=== PATIENT | male | born 1985 | race Caucasian/White ===

== ENCOUNTER → 2017-10-24 14:01 | Outpatient (CLI) | payer BC, SELFPAY | PROVIDERS: Family Provider Family Medicine; PCP Family Medicine; Visit Provider Family Medicine | DX: A09 Infectious gastroenteritis and colitis, unspecified (principal) | CPT/HCPCS: 87177; 87209; 87506 ==

== ENCOUNTER 2018-04-01 14:02 | Emergency (ER) | payer BC, MEDICAID, SELFPAY ==
[2018-04-01 14:04] VITALS: BP 137/77; PULSE 86; RESP 16; TEMP 36.5; O2SAT 97; BMI 44.0
--- NOTE | 2018-04-01 14:39 | ED.RN ---
PER DR. RAINEY, NO SITTER NECESSARY FOR PT. VIPIN NUNO FROM [employer]BER SERVICE REPRESENTATIVE TO TALK TO PT. FAMILY PRESENT IN ROOM, CALL LIGHT IN REACH.
--- NOTE | 2018-04-01 15:01 | ED.VISSUMM ---
- ER Visit Summary Date of Service: 04/01/18 Chief Complaint: Depression/anger History of Present Illness: The patient is a 32 M who states that he is depressed and angry. He states is worsening over the past 2 days. He has been having issues with family at home. He states he is not sleeping well because he has twins. He states he angers easily and that involves fighting with his . He denies being suicidal at this time. However, during an argument over the past couple of days he states that he did say at one point he may hurt himself but he does not feel like he will at this point. Over the past couple of years he states that multiple people close to him of which is made him more depressed. He currently is on Zoloft. This is prescribed by his primary care physician. He has a follow-up appointment with the counseling center in 8 days. He has never been hospitalized at a psychiatric facility before. He has never seen a counselor previously. Physical Examination: Vital signs reviewed. HEENT exam unremarkable. Heart is regular rate and rhythm without murmurs. Lungs are clear to auscultation. Abdomen is soft and nontender. Extremities reveal no edema. Skin exam normal. Neurologic exam normal. Patient states he is depressed but he voices no suicidal thoughts at this time. He is future oriented when discussing his children and the upcoming appointment with the counseling center. Test Results: None performed Emergency Department Course and Treatment: At this point I do not feel the patient is suicidal. He has good insight and states that when he was angry and fighting he may have said something that he did not mean and he regrets saying it. I had the social sciences department chair also evaluate the patient and she also agrees that the patient does not appear to be suicidal. She is going to follow-up with the counseling center to possibly get the patient in earlier than 8 days. Patient understands that he can always come back here or call the emergency department if he is feeling suicidal. Family is comfortable with taking him home with him. Treatment Plan: [] Disposition: Discharge Impression: Depression This note was generated with [employer] software. It may contain incorrect words, spelling, and punctuation that were not noted in review of the chart prior to signing ED Disposition - Plan for ED Patient: Chief Complaint: Mental Health Referrals: Pravin Rodriges MD [Primary Care Provider] -
--- NOTE | 2018-04-01 15:04 | ED.DCSUM_ITS ---
- ER Visit Summary Date of Service: 04/01/18 Chief Complaint: Depression/anger History of Present Illness: The patient is a 32 M who states that he is depressed and angry. He states is worsening over the past 2 days. He has been having issues with family at home. He states he is not sleeping well because he has twins. He states he angers easily and that involves fighting with his . He denies being suicidal at this time. However, during an argument over the past couple of days he states that he did say at one point he may hurt himself but he does not feel like he will at this point. Over the past couple of years he states that multiple people close to him of which is ma de him more depressed. He currently is on Zoloft. This is prescribed by his primary care physician. He has a follow-up appointment with the counseling center in 8 days. He has never been hospitalized at a psychiatric facility before. He has never seen a counselor previously. Physical Examination: Vital signs reviewed. HEENT exam unremarkable. Heart is regular rate and rhythm without murmurs. Lungs are clear to auscultation. Abdomen is soft and nontender. Extremities reveal no edema. Skin exam normal. Neurologic exam normal. Patient states he is depressed but he voices no suicidal thoughts at this time. He is future oriented when discussing his children and the upcoming appointment with the counseling center. Test Results: None performed Emergency Department Course and Treatment: At this point I do not feel the patient is suicidal. He has good insight and states that when he was angry and fighting he may have said something that he did not mean and he regrets saying it. I had the mental health social worker also evaluate the patient and she also agrees that the patient does not appear to be suicidal. She is going to follow-up with the counseling center to possibly get the patient in earlier than 8 days. Patient understands that he can always come back here or call the emergency department if he is feeling suicidal. Family is comfortable with taking him home with him. Treatment Plan: [] Disposition: Discharge Impression: Depression This note was generated with [employer] software. It may contain incorrect words, spelling, and punctuation that were not noted in review of the chart prior to signing ED Disposition - Plan for ED Patient: Chief Complaint: Mental Health Referrals: Pravin Rodriges MD [Primary Care Provider] -
--- NOTE | 2018-04-01 15:04 | ED.DEP ---
ED Disposition - Plan for ED Patient: Disposition: Home or Assisted Living Chief Complaint: Mental Health Instructions: ED Depression Referrals: Pravin Rodriges MD [Primary Care Provider] -
[2018-04-01 15:05] VITALS: RESP 18
--- NOTE | 2018-04-01 15:09 | CM.ED ---
Social Work Assessment Consult for: Depression Informant: Dr. Ponce Information obtained from: Medical record, pt and pt's , Emilia. Introduced self and role at [facility]. The pt is lying in bed and presents with pleasant affect as evidenced by smiling and willingness to participate in assessment. Maintains very little eye contact throughout assessment, but responds to questions appropriately and thoroughly. provides additional information as needed. Living Arrangements: Pt reports to live with his and 5 children. They have their 10 week old twins in the room with them today. Report stable housing. 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 Financially both report to feel stable although claim that money is tight. Family Supports: Pt identifies his as a primary support. Stressors: Within the last year the pt has lost his father, a close friend, and found out that his mother has lung cancer. His marriage has also struggled as there is a history of substance abuse, and they now have twins. Emotional support provided by this program writer as well as pt's . Provide support to her as well. Emilia reports that she struggles to trust the pt d/t to substance abuse and feels as though some days lately he is not any help with the children and it can be overbearing on her as they have 5 children. At this time pt reaches out to hold his 's hand and provides support to her. Both report that they want their marriage to work and for the pt to take care of my mental health and substance abuse. Mental Health Hx: Pt reports a hx of depression. He has not gone to a counselor since his education at the [facility]. He has an appointment with [facility] on 04/09 for an intake with a counselor. He does not see a psychiatrist and Dr. Rodriges had been prescribing him Lexapro for 6 months and he recently switched to a practitioner at [facility] who put him on Zoloft within the last week. Feels that the switch in medication and adjustment has contributed to his recent increase in depression. Pt states that he was upset and made a comment about killing himself, but denies SI, denies a plan or intent or means. No past attempts, or psychiatric hospitalizations. Educate to [facility] and pt is agreeable to have staff contact him via phone call and educate further on their services. Provide the pt with resources on suicide prevention line and crisis line, support groups in the area as well as alternative counseling and psychiatrists locally. Pt and accept information and thank this program writer. Substance Abuse Hx: Pt reports quitting smoking tobacco 4 months ago before the twins arrived. States that he drinks socially maybe 3x/year. Does smoke cannabis regularly and his last methamphetamine use was approximately 1 month ago. Pt does express interest in quitting. Denies having been to any type of substance abuse treatment and again review resource and point out [employer] and inform that the [facility] and [facility] also work with dual diagnosis pt's. Understanding expressed. Intervention(s) Assessment complete and update physician that pt is safe to discharge home. Placed call to Justin and requested they follow-up with the pt tomorrow, which Justin confirms he will do. Local resources provided and encouraged pt and if symptoms get worse to return to ED for evaluation. PLAN: Discharge home with support of . [facility] appoint on 04/09 and [facility] to f/u via phone call tomorrow, 04/02. Celestina Galeano, HUMAN RESOURCES DIRECTOR, VIPIN
[2018-04-01 15:31] VITALS: RESP 15
--- OUTSIDE RECORDS SUMMARY | 2018-06-04 03:35 | XMS RPT_ITS ---
:1985 Author Organization OH[facility] Care Team Providers Name Role Phone CHRIS VEGA (EMPLOYMENT AGENCY MANAGER) Referring Unavailable CHRIS VEGA (EMPLOYMENT AGENCY MANAGER) Attending Unavailable Chepe Ponce Attending Unavailable Primay Care Physicia, No Primary Care Unavailable Pravin Rodriges Attending Unavailable Pravin Rodriges Primary Care Unavailable Benji Chapman Attending Unavailable PROBLEMS PROBLEMS DATE TYPE CONDITION / CODE ATTENDING STATUS SOURCE 03/26/2018 Active Other fatigue / NA Active [place] R53.83(ICD-10) Clinic Main [place] Repository 03/26/2018 Active Encounter for NA Active [place] screening for lipoid [facility] Main disorders / [place] Z13.220(ICD-10) Repository 10/25/2017 Unknown A09 - Infectious Pravin Rodriges Active [place] gastroenteritis and Community colitis, unspecified Hospital / A09(ICD-10) Repository 09/14/2017 Unknown L08.9 - Local Benji Chapman Active [place] infection of the skin Community and subcutaneous Hospital tissue, unspecified / Repository L08.9(ICD-10) PROCEDURES PROCEDURES No Procedure Records FoundRESULTS RESULTS EMERGENCY DEPARTMENT Observed: 04/01/2018 Status: F Source: [place] SUMMARY 3:04 PM [facility] [place] REPOSITORY [facility] Medical Records Department [address] [place] [address] Emergency Department Summary 04/01/18 1501 MR#: [id number] Acct: [id number] Name: SHUN PICKERING Rep #: [id number] : 1985 32 From: Chepe Ponce MD PCP: Pravin Rodriges MD Status: PRE ER - ER Visit Summary Date of Service: 04/01/18 Chief Complaint: Depression/anger History of Present Illness: The patient is a 32 M who states that he is depressed and angry. He states is worsening over the past 2 days. He has been having issues with family at home. He states he is not sleeping well because he has twins. He states he angers easily and that involves fighting with his . He denies being suicidal at this time. However, during an argument over the past couple of days he states that he did say at one point he may hurt himself but he does not feel like he will at this point. Over the past couple of years he states that multiple people close to him of which is made him more depressed. He currently is on Zoloft. This is prescribed by his primary care physician. He has a follow-up appointment with the counseling center in 8 days. He has never been hospitalized at a psychiatric facility before. He has never seen a counselor previously. Physical Examination: Vital signs reviewed. HEENT exam unremarkable. Heart is regular rate and rhythm without murmurs. Lungs are clear to auscultation. Abdomen is soft and nontender. Extremities reveal no edema. Skin exam normal. Neurologic exam normal. Patient states he is depressed but he voices no suicidal thoughts at this time. He is future oriented when discussing his children and the upcoming appointment with the counseling center. Test Results: None performed Emergency Department Course and Treatment: At this point I do not feel the patient is suicidal. He has good insight and states that when he was angry and fighting he may have said something that he did not mean and he regrets saying it. I had the director of social media marketing also evaluate the patient and she also agrees that the patient does not appear to be suicidal. She is going to follow-up with the counseling center to possibly get the patient in earlier than 8 days. Patient understands that he can always come back here or call the emergency department if he is feeling suicidal. Family is comfortable with taking him home with him. Treatment Plan: [] Disposition: Discharge Impression: Depression This note was generated with [employer] software. It may contain incorrect words, spelling, and punctuation that were not noted in review of the chart prior to signing ED Disposition - Plan for ED Patient: Chief Complaint: Mental Health Referrals: Pravin Rodriges MD [Primary Care Provider] - What to do if you have Problems For any increased pain, shortness of breath, bleeding, nausea or vomiting, chest pain, or any unexpected problems, contact your Primary Care Provider. Call [facility] ([phone]) or report to the closest Emergency Room. Call 911 if necessary. 04/01/18 1504 <Electronically signed by Chepe Ponce MD> Date Chepe Ponce MD Cosigner Signature (If Indicated): Date CC: Pravin Rodriges MD DISCHARGE INSTRUCTION Observed: 04/01/2018 Status: F Source: [place] 3:04 PM [facility] REPOSITORY [facility] Medical Records Department [address] [place] [id number] Discharge Instruction 04/01/18 1504 MR#: [id number] Acct: [id number] Name: SHUN PICKERING Rep #: [id number] : 1985 32 From: Chepe Ponce MD PCP: Pravin Rodriges MD Status: PRE ER ED Disposition - Plan for ED Patient: Disposition: Home or Assisted Living Chief Complaint: Mental Health Instructions: ED Depression Referrals: Pravin Rodriges MD [Primary Care Provider] - What to do if you have Problems For any increased pain, shortness of breath, bleeding, nausea or vomiting, chest pain, or any unexpected problems, contact your Primary Care Provider. Call [facility] ([phone]) or report to the closest Emergency Room. Call 911 if necessary. 04/01/18 1504 <Electronically signed by Chepe Ponce MD> Date Chepe Ponce MD Cosigner Signature (If Indicated): Date CC: Pravin Rodriges MD CBC Collected: 03/26/2018 Status: F Source: [place] 12:38 PM [facility] REPOSITORY TYPE CODE TESTS RESULT OUT OF REFERENCE UNITS RANGE LAB WBC 3.70-11.00 k/uL WBC 7.52 LAB RBC 4.20-6.00 m/uL RBC 5.30 LAB HGB 13.0-17.0 g/dL Hemoglobin 14.9 LAB HCT 39.0-51.0 % Hematocrit 46.1 LAB MCV 80.0-100.0 fL MCV 87.0 LAB MCH 26.0-34.0 pG MCH 28.1 LAB MCHC 30.5-36.0 g/dL MCHC 32.3 LAB RDWCV 11.5-15.0 % RDW-CV 13.0 LAB PLTCT 150-400 k/uL Platelet Count 278 LAB MPV 9.0-12.7 fL MPV 10.7 LAB ABSNUC <0.01 k/uL Absolute nRBC <0.01 Performed By: #### CBC, CMP, LIPNF, TSH #### [facility] [address] [address] COMP METABOLIC PANEL Collected: 03/26/2018 Status: F Source: [place] 12:38 PM [facility] REPOSITORY TYPE CODE TESTS RESULT OUT OF REFERENCE UNITS RANGE LAB TP 6.3-8.0 g/dL Protein, Total 7.9 LAB ALB 3.9-4.9 g/dL Albumin 4.7 LAB CA 8.5-10.2 mg/dL Calcium, Total 10.0 LAB TBIL 0.2-1.3 mg/dL Bilirubin, Total 0.5 LAB ALKP 38-113 U/L Alkaline Phosphatase 61 LAB AST 14-40 U/L AST 32 LAB GLU 74-99 mg/dL Glucose 80 Result Comment: The [place] Diabetes Association (ADA) provides guidance for cutoff values for fasting glucose and random glucose. The ADA defines fasting as no caloric intake for at least 8 hours. Fas ting plasma glucose results between 100 to 125 mg/dL indicate increased risk for diabetes (prediabetes). Fasting plasma glucose results greater than or equal to 126 mg/dL meet the criteria for diagnosis of diabetes. In the absence of unequivocal hyperglycemia, results should be confirmed by repeat testing. In a patient with classic symptoms of hyperglycemia or hyperglycemic crisis, random plasma glucose results greater than or equal to 200 mg/dL meet the criteria for diagnosis of diabetes. Reference: Standards of Medical Care in Diabetes 2016, [place] [employer] Diabetes Association. Diabetes Care. 2016.39(Suppl 1). LAB BUN 9-24 mg/dL BUN 15 LAB CRET 0.73-1.22 mg/dL Creatinine 1.08 LAB NA 136-144 mmol/L Sodium 141 LAB K 3.7-5.1 mmol/L Potassium 4.3 LAB CL 97-105 mmol/L Chloride 101 LAB CO2 22-30 mmol/L CO2 26 LAB AGAP 9-18 mmol/L Anion Gap 14 LAB ALT 10-54 U/L ALT 48 LAB GFRAA eGFR- Amer. >60 LAB GFRNAA . eGFR-All Other Races >60 Result Comment: eGFR (Estimated GFR) Units of measure: mL/min/1.73 meters squared eGFR is derived from the reexpressed MDRD Study equation using the following parameters: serum creatinine, age, gender and race. The creatinine assay has been calibrated to be traceable to IDMS. An eGFR <60 mL/min/1.73m2 for >3 months is consistent with chronic kidney disease. Refer to KDOQI guidelines for clinical interpretation. In patients with unstable renal function, e.g. those with acute kidney injury, the eGFR may not accurately reflect actual GFR. Performed By: #### CBC, CMP, LIPNF, TSH #### [facility] [address] [address] LIPID PANEL, NONFAST Collected: 03/26/2018 Status: F Source: [place] 12:38 PM [facility] TYPE CODE TESTS RESULT OUT OF REFERENCE UNITS RANGE LAB CHOLNF <200 mg/dL Total High Cholesterol NF 220 Result Comment: <200 mg/dL, Desirable 200-239 mg/dL, Borderline high >239 mg/dL, High LAB TRIGNF <150 mg/dL Triglycerides, NF High 173 Result Comment: <150 mg/dL, Normal 150-199 mg/dL, Borderline high 200-499 mg/dL, High >499 mg/dL, Very high LAB HDLNF >39 mg/dL HDL Cholesterol, NF 40 Result Comment: 40-59 mg/dL, Acceptable >59 mg/dL, High: Negative risk factor for coronary heart disease <40 mg/dL, Low: Positive risk factor for coronary heart disease LAB LDLNF <100 mg/dL LDL Cholesterol, High NF 145 Result Comment: <100 mg/dL, Optimal 100-129 mg/dL, Near optimal/above optimal 130-159 mg/dL, Borderline high 160-189 mg/dL, High >189 mg/dL, Very high Secondary prevention optimal LDL Cholesterol levels are recommended to be < 70 mg/dL LAB NOHDLN <130 mg/dL High Non HDL Chol, 180 NF Result Comment: <130 mg/dL, Optimal 130-159 mg/dL, Near optimal/above optimal 160-189 mg/dL, Borderline high 190-219 mg/dL, High >219 mg/dL, Very high Secondary prevention optimal non HDL Cholesterol levels are recommended to be < 100 mg/dL LAB VLDLNF <30 mg/dL VLDL Cholesterol, High NF 35 LAB TCHDLN <5.10 mg/dL T Chol/HDL Ratio High NF 5.50 LAB LDLHDN <2.54 mg/dL LDL/HDL Ratio, NF High 3.63 Result Comment: Reference: 1. National Cholesterol Education Program ATP III Guideline At-A-Glance Quick Desk Reference: National Heart, Lung, and Blood [place]. National Institutes of Health. 2001: NIH Publication No. 01-3305. 2. An International Atherosclerosis Society position paper: global recommendations for the management of dyslipidemia: executive summary, Atherosclerosis. 2014: 232(2):410-413. Performed By: #### CBC, CMP, LIPNF, TSH #### [facility] [address] [address] TSH Collected: 03/26/2018 Status: F Source: [place] 12:38 PM [facility] REPOSITORY TYPE CODE TESTS RESULT OUT OF RANGE REFERENCE UNITS LAB TSH 0.400-5.500 uU/mL TSH 1.200 Performed By: #### CBC, CMP, LIPNF, TSH #### [facility] [address] [place], [place] [address] PROGRESS Observed: 03/26/2018 Status: COMPLETED Source: [place] 11:35 AM [facility] REPOSITORY HNO ID: [id number] Author: Chris (Moses) Nathan Service: (none) Author Type: Nurse Practitioner Type: Progress Notes Filed: 03/26/2018 1:26 PM Note Text: 03/26/2018 Patient presents with: anxiety and depression SUBJECTIVE: This is a 32 year old that is here today for anxiety and depression concerns. He states that he was being seen by Dr. Rodriges and for the last 5 months being treated for anxiety and depression with lexapro. 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 He has used twice in the last 2 months. He would like to look into [facility] because a friends suggested it. He does have an appointment with the counseling center on 04/09/18. He thinks that the depression has gotten worse while the anxiety may have gotten a little better. He and both describe major lows and few days where he is his normal self, happy, smiling, joking etc. They deny any concerns for sabas. She states that there had been times that he is talking real fast, but she feels that he was using drugs as a reason. He and are also very concerned about having labs done and would like a sleep study for known apnea and snoring along with constant fatigue. They are agreeable to reschedule for physical, but would like to have this done sooner than later if able. He denies SOB, CP, SHEA, vision changes, weakness, lightheadedness, dizziness. He has 9 week old twin girls and 3 other children. PAST MEDICAL HISTORY Diagnosis Date - Anxiety - Depression ALLERGIES Patient has no known allergies. MEDICATIONS Current Outpatient Prescriptions: escitalopram oxalate (LEXAPRO) 20 mg tablet Take 20 mg by mouth once daily. No current facility-administered medications for this visit. Medications and allergies reviewed by this provider. SOCIAL HISTORY Social History Marital status: Spouse name: Years of education: Number of children: Social History Main Topics Smoking status: Former Smoker Packs/day: 0.00 Years: 0.00 Smokeless tobacco: Current User Types: Chew Alcohol use: No Drug use: No REVIEW OF SYSTEMS see HPI Feeling nervous, anxious, or on edge 3 Nearly every day Not being able to stop or control worrying 0 Not at all sure Worrying too much about different things 1 Several days Trouble relaxing 0 Not at all sure Being so restless that it's hard to sit still 0 Not at all sure Being easily annoyed or irritable 2 Over half the days Feeling afraid as if something awful might happen 0 Not at all sure BENNIE-7 Anxiety Score 6 If you checked off any problems, how difficult have these problems made it for you to do your work, take care of things at home, or get along with other people? Very difficult THE LAST 2 WEEKS, HAVE YOU BEEN BOTHERED BY ANY OF THE FOLLOWING? - Little interest or pleasure in doing things 3 NEARLY EVERY DAY Feeling down, depressed, or hopeless 2 Trouble falling or staying asleep, or sleeping too much 3 Feeling tired or having little energy 3 Poor appetite or overeating 2 Feeling bad yourself-you are a failure or have let yourself or others 3 Trouble concentrating, like reading the paper or watching TV 1 Moving/speaking slowly (others notice) OR being more fidgety/restless 3 Thoughts that you would be better off or of hurting yourself 0 PHQ TOTAL SCORE = 20 PHQ problems effect on difficulty of work, home, and social activity: 3 - VERY DIFFICULT OBJECTIVE: BP 132/80 Pulse 104 Resp 16 Ht 174 cm (5' 8.5) Wt 130.6 kg (288 lb) SpO2 98% BMI 43.15 kg/m? . Vital signs reviewed by this provider. PHYSICAL EXAMINATION: General appearance: Well appearing, alert, in no acute distress, well-hydrated, well nourished. Skin: Skin color, texture, turgor normal, no suspicious rashes or lesions Eyes: Anicteric sclera. Pupils are equally round and reactive to light. Neck: Supple, no adenopathy; thyroid symmetric, normal size, no bruits Lungs: lungs clear to auscultation. No wheezing, rhonchi, rales Heart: RRR without murmur, gallop, or rubs. No ectopy Extremities: No deformities, edema, skin discoloration, clubbing or cyanosis. Good capillary refill. , Pulses: 2+ Appearance: well dressed well groomed, tense posture, cooperative and pleasant Behavior: poor eye contact Speech: fluent and coherent Mood: anxious Affect: appropriate Perceptions: none Thought process: goal directed Thought Content: normal Intelligence level: normal Insight: good Judgment: good ASSESSMENT/PLAN: 1. Anxiety and depression - ICD9: 300.00, 311, ICD10: F41.9, F32.9 (primary diagnosis) - will switch from lexapro to zoloft since feeling increased depression on it. - SERTRALINE 25 MG TABLET- start with 25 mg daily for 1 week, then increase to 50mg - encouraged to follow up with counseling center as planned, but also given information on [facility] and encouraged to schedule - discussed and encouraged nonpharmacologic measures. - HYDROXYZINE PAMOATE 25 MG CAPSULE 2. Drug abuse (HCC) - ICD9: 305.90, ICD10: F19.10 - given information on [facility] and encouraged to schedule - commended on voicing that he would not want any addictive medications 3. Snoring - ICD9: 786.09, ICD10: R06.83 - HOME SLEEP APNEA TEST (HSAT) - PAP TITRATION PSG (CPAP, BIPAP, ASV) 4. Apnea - ICD9: 786.03, ICD10: R06.81 - HOME SLEEP APNEA TEST (HSAT) - PAP TITRATION PSG (CPAP, BIPAP, ASV) 5. Fatigue, unspecified type - ICD9: 780.79, ICD10: R53.83 - HOME SLEEP APNEA TEST (HSAT) - PAP TITRATION PSG (CPAP, BIPAP, ASV) - COMP METABOLIC PANEL - CBC - TSH BLD 6. Screening cholesterol level - ICD9: V77.91, ICD10: Z13.220 - LIPID PANEL, NONFASTING 7. Obesity, Class III, BMI 40-49.9 (morbid obesity) (HCC) - ICD9: 278.01, ICD10: E66.01 - discussed general focus on healthy diet and exercise is a good idea, but would focus on mental health first 8. Tobacco use - ICD9: 305.1, ICD10: Z72.0 - Cessation encouraged. - Physiologic and physical aspects of tobacco addiction as well as strategies for quitting were discussed. - Counseling was given focusing on the harmful effects of this addiction especially given the patient's medical condition(s) which will be worsened because of the chemicals in tobacco. Chris Vega APRN.CNP CNOV Observed: 03/26/2018 Status: COMPLETED Source: [place] 11:20 AM [facility] REPOSITORY Office Visit (FAMPWS) SHUN PICKERING ([id number]) 1985 M [facility] [place] Date Time Provider Department 03/26/18 11:20 AM [facility] visit today, we recorded the following information about you: Pulse Respiration Blood pressure Weight 104/minute 16/minute 132/80 130.6 kg Height 1.74 m Chris Vega APRN.CNP 03/26/2018 1:26 PM Signed 03/26/2018 Patient presents with: anxiety and depression SUBJECTIVE: This is a 32 year old that is here today for anxiety and depression concerns. He states that he was being seen by Dr. Rodriges and for the last 5 months being treated for anxiety and depression with lexapro. 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 He has used twice in the last 2 months. He would like to look into [facility] because a friends suggested it. He does have an appointment with the counseling center on 04/09/18. He thinks that the depression has gotten worse while the anxiety may have gotten a little better. He and both describe major lows and few days where he is his normal self, happy, smiling, joking etc. They deny any concerns for sabas. She states that there had been times that he is talking real fast, but she feels that he was using drugs as a reason. He and are also very concerned about having labs done and would like a sleep study for known apnea and snoring along with constant fatigue. They are agreeable to reschedule for physical, but would like to have this done sooner than later if able. He denies SOB, CP, SHEA, vision changes, weakness, lightheadedness, dizziness. He has 9 week old twin girls and 3 other children. PAST MEDICAL HISTORY Diagnosis Date - Anxiety - Depression ALLERGIES Patient has no known allergies. MEDICATIONS Current Outpatient Prescriptions: escitalopram oxalate (LEXAPRO) 20 mg tablet Take 20 mg by mouth once daily. No current facility-administered medications for this visit. Medications and allergies reviewed by this provider. SOCIAL HISTORY Social History Marital status: Spouse name: Years of education: Number of children: Social History Main Topics Smoking status: Former Smoker Packs/day: 0.00 Years: 0.00 Smokeless tobacco: Current User Types: Chew Alcohol use: No Drug use: No REVIEW OF SYSTEMS see HPI Feeling nervous, anxious, or on edge 3 Nearly every day Not being able to stop or control worrying 0 Not at all sure Worrying too much about different things 1 Several days Trouble relaxing 0 Not at all sure Being so restless that it's hard to sit still 0 Not at all sure Being easily annoyed or irritable 2 Over half the days Feeling afraid as if something awful might happen 0 Not at all sure BENNIE-7 Anxiety Score 6 If you checked off any problems, how difficult have these problems made it for you to do your work, take care of things at home, or get along with other people? Very difficult THE LAST 2 WEEKS, HAVE YOU BEEN BOTHERED BY ANY OF THE FOLLOWING? - Little interest or pleasure in doing things 3 NEARLY EVERY DAY Feeling down, depressed, or hopeless 2 Trouble falling or staying asleep, or sleeping too much 3 Feeling tired or having little energy 3 Poor appetite or overeating 2 Feeling bad yourself-you are a failure or have let yourself or others 3 Trouble concentrating, like reading the paper or watching TV 1 Moving/speaking slowly (others notice) OR being more fidgety/restless 3 Thoughts that you would be better off or of hurting yourself 0 PHQ TOTAL SCORE = 20 PHQ problems effect on difficulty of work, home, and social activity: 3 - VERY DIFFICULT OBJECTIVE: BP 132/80 Pulse 104 Resp 16 Ht 174 cm (5' 8.5) Wt 130.6 kg (288 lb) SpO2 98% BMI 43.15 kg/m? . Vital signs reviewed by this provider. PHYSICAL EXAMINATION: General appearance: Well appearing, alert, in no acute distress, well-hydrated, well nourished. Skin: Skin color, texture, turgor normal, no suspicious rashes or lesions Eyes: Anicteric sclera. Pupils are equally round and reactive to light. Neck: Supple, no adenopathy; thyroid symmetric, normal size, no bruits Lungs: lungs clear to auscultation. No wheezing, rhonchi, rales Heart: RRR without murmur, gallop, or rubs. No ectopy Extremities: No deformities, edema, skin discoloration, clubbing or cyanosis. Good capillary refill. , Pulses: 2+ Appearance: well dressed well groomed, tense posture, cooperative and pleasant Behavior: poor eye contact Speech: fluent and coherent Mood: anxious Affect: appropriate Perceptions: none Thought process: goal directed Thought Content: normal Intelligence level: normal Insight: good Judgment: good ASSESSMENT/PLAN: 1. Anxiety and depression - ICD9: 300.00, 311, ICD10: F41.9, F32.9 (primary diagnosis) - will switch from lexapro to zoloft since feeling increased depression on it. - SERTRALINE 25 MG TABLET- start with 25 mg daily for 1 week, then increase to 50mg - encouraged to follow up with counseling center as planned, but also given information on [facility] and encouraged to schedule - discussed and encouraged nonpharmacologic measures. - HYDROXYZINE PAMOATE 25 MG CAPSULE 2. Drug abuse (HCC) - ICD9: 305.90, ICD10: F19.10 - given information on [facility] and encouraged to schedule - commended on voicing that he would not want any addictive medications 3. Snoring - ICD9: 786.09, ICD10: R06.83 - HOME SLEEP APNEA TEST (HSAT) - PAP TITRATION PSG (CPAP, BIPAP, ASV) 4. Apnea - ICD9: 786.03, ICD10: R06.81 - HOME SLEEP APNEA TEST (HSAT) - PAP TITRATION PSG (CPAP, BIPAP, ASV) 5. Fatigue, unspecified type - ICD9: 780.79, ICD10: R53.83 - HOME SLEEP APNEA TEST (HSAT) - PAP TITRATION PSG (CPAP, BIPAP, ASV) - COMP METABOLIC PANEL - CBC - TSH BLD 6. Screening cholesterol level - ICD9: V77.91, ICD10: Z13.220 - LIPID PANEL, NONFASTING 7. Obesity, Class III, BMI 40-49.9 (morbid obesity) (HCC) - ICD9: 278.01, ICD10: E66.01 - discussed general focus on healthy diet and exercise is a good idea, but would focus on mental health first 8. Tobacco use - ICD9: 305.1, ICD10: Z72.0 - Cessation encouraged. - Physiologic and physical aspects of tobacco addiction as well as strategies for quitting were discussed. - Counseling was given focusing on the harmful effects of this addiction especially given the patient's medical condition(s) which will be worsened because of the chemicals in tobacco. ABIGAIL Beasley APRN.CNP 03/26/2018 1:18 PM Signed Referring Provider: SELF [200] Allergies As of Date: 03/26/2018 (No Known Allergies) Date Reviewed: 03/26/2018 Reviewed by: Raisa Killian) BETSY Sanchez - Fully Assessed Reason for Visit: anxiety and depression [Other] Reason For Visit History Recorded Primary Visit Diagnosis:Anxiety and depression [F41.9, F32.9] Other Visit Diagnoses:Drug abuse ([facility]) [F19.10] Snoring [R06.83] Apnea [R06.81] Fatigue, unspecified type [R53.83] Screening cholesterol level [Z13.220] Obesity, Class III, BMI 40-49.9 (morbid obesity) (HCC) [E66.01] Tobacco use [Z72.0] Order(s):sertraline (ZOLOFT) 25 mg tabletTake 1 tablet by mouth once daily.Disp: 45 tabletRfl: 1 hydrOXYzine pamoate (VISTARIL) 25 mg capsuleTake 1 capsule by mouth three times daily as needed.Disp: 90 capsuleRfl: 0 HOME SLEEP APNEA TEST (HSAT) [9588005] Order #: [id number] FUTURE PAP TITRATION PSG (CPAP, BIPAP, ASV) [0244047] Order #: [id number] FUTURE COMP METABOLIC PANEL [SQCMP] Order #: [id number] FUTURE CBC [SQCBC] Order #: [id number] FUTURE LIPID PANEL, NONFASTING [SQLIPNF] Order #: [id number] FUTURE TSH BLD [SQTSH] Order #: [id number] FUTURE Prescriptions as of 03/26/2018 Sig: SERTRALINE 25 MG TABLET Take 1 tablet by mouth once d* HYDROXYZINE PAMOATE 25 MG CAP* Take 1 capsule by mouth three* Problem List As Of Date 03/26/2018 Noted Resolved Drug abuse (HCC) [F19.10] INVALID FOR* Anxiety and depression [F41.9, F32.9] INVALID FOR* Other instructions from your clinician: Prescriptions ordered this encounter Disp Refills Start End SERTRALINE 25 MG TABLET 45 t* 1 03/26/2018 Route: ORAL Sig: Take 1 tablet by mouth once daily. HYDROXYZINE PAMOATE 25 MG CAPSULE 90 c* 0 03/26/2018 Route: ORAL Sig: Take 1 capsule by mouth three times daily as needed. Medications Discontinued During This Encounter escitalopram oxalate (LEXAPRO) 20 mg* 5 03/18/2018 03/26/2018 Class: Historical Med Route: ORAL Sig: Take 20 mg by mouth once daily. Disc: Reason for discontinue is not on file. Disposition: Return for 1 month anxiety and depression and needs to establish. Follow-up and Disposition History Recorded Questionnaire: BENNIE-7 ANXIETY SCALE Feeling nervous, anxious, or on edge -> 3 Nearly every day Not being able to stop or control worrying -> 0 Not at all sure Worrying too much about different things -> 1 Several days Trouble relaxing -> 0 Not at all sure Being so restless that it's hard to sit still -> 0 Not at all sure Being easily annoyed or irritable -> 2 Over half the days Feeling afraid as if something awful might happen -> 0 Not at all sure BENNIE-7 Anxiety Score -> 6 If you checked off any problems, how difficult have these problems made it for you to do your work, take care of things at home, or get along with other people? -> Very difficult Questionnaire: PHQ-9 THE LAST 2 WEEKS, HAVE YOU BEEN BOTHERED BY ANY OF THE FOLLOWING? -> - Little interest or pleasure in doing things -> 3 NEARLY EVERY DAY Feeling down, depressed, or hopeless -> 2 Trouble falling or staying asleep, or sleeping too much - > 3 Feeling tired or having little energy -> 3 Poor appetite or overeating -> 2 Feeling bad yourself-you are a failure or have let yourself or others -> 3 Trouble concentrating, like reading the paper or watching TV -> 1 Moving/speaking slowly (others notice) OR being more fidgety/restless -> 3 Thoughts that you would be better off or of hurting yourself -> 0 PHQ TOTAL SCORE = -> 20 PHQ problems effect on difficulty of work, home, and social activity: -> 3 - VERY DIFFICULT Encounter Status:Closed by CHRIS VEGA on 03/26/18 Observed: 10/24/2017 Status: F Source: [facility] ENTERIC PATHOGEN 1:00 PM [facility] PANEL STOOL REPOSITORY PANEL STOOL Normal Reference Range = Not Detected Not detected for Campylobacter group, Salmonella species, Shigella species, Vibrio Group, Yersinia enterocolitica, EHEC (Shiga Toxin 1, Shiga Toxin 2), Norovirus Gl/Gll, and Rotavirus A. Other common stool pathogens are not detected on this panel include: Aeromonas/Plesiomonas or parasites. Order testing for these organisms separately if suspected. This is an amplified DNA test which makes it both specific and sensitive. CAMPYLOBACTER Not Detected Salmonella Not Detected Shigella sp. Not Detected Shiga Toxin Not Detected Yersinia Not Detected VIBRIO Not Detected Norovirus Not Detected Rotavirus Not Detected Performed By: #### M100.637 #### [facility] [address] [place], [address] Observed: 10/24/2017 Status: F Source: [facility] OVA AND PARASITES 1:00 PM [facility] REPOSITORY O + P OVA AND PARASITES EXAM, ROUTINE These results were obtained using wet preparation(s) and trichrome stained smear. This test does not include testing for Crytosporidium parvum, Cyclospora, or Microsporidia. TESTING PERFORMED AT [facility]. ORIGINAL REPORT ON FILE IN LAB CONTAINS ADDITIONAL TEST SITE INFORMATION. Ova/Parasite Exam NO OVA, CYSTS, OR PARASITES FOUND. Performed By: #### M600.5000 #### [facility] [address] [place], [place], [address] URGENT CARE VISIT Observed: 09/14/2017 Status: F Source: [facility] REPORT 9:24 AM [facility] REPOSITORY [facility] [address] [place] [address] 6 [place] [address] OFFICE VISIT Date of Service: 09/14/17 MR#: [id number] Acct: [id number] Name: SHUN PICKERING Rep #: [id number] : 1985 Provider: Benji WARNER Age/Sex: 31/M [place] [facility] [place] Status: Signed Intake Vital Signs09/14/17 Height 5 ft 9.5 in Intake Visit Reasons: got in mud, rash/cuts Is patient in pain?: Yes Pain scale (1-10): 3 Allergies No Known Allergies Allergy (Unverified 09/14/17 08:39) Medications sulfamethoxazole 800 mg-trimethoprim 160 mg tablet 1 tab PO Q12H 7 Days #14 tab 09/14/17 [Rx Confirmed 09/14/17] PFSH Medical History Acute hemorrhoid (Acute) Diarrhea (Acute) History of deviated nasal septum (Acute) Surgical History History of surgical removal of meniscus of knee (Acute) Family History Other Cancer Myocardial infarction Social History Smoking Status: Current some day smoker HPI HPI Details: SHUN PICKERING, is a 31 M who presents to the office today for bilateral lower leg abrasions and redness. Patient states several days ago walking through a high grass and then falling into a hole full of mud. He states that the grass made multiple small cuts on both of his legs which have since become irritated, red and painful. He reports the pain is a 3 out of 10 at rest however is 6 out of 10 when touched. He does report trying to clean it 4 times yesterday with hydroperoxide. He notes no calf pain or difficulty walking. He has had no fever, chills, sweats. No shortness of breath, difficulty breathing or chest pain. No nausea, vomiting, diarrhea. No other associated symptoms or alleviating/aggravating factors. ROS Const Constitutional: No chills, fever(s), fatigue or abnormal sleep pattern Resp Respiratory: No shortness of breath or chest congestion Cardio Cardiology: No chest pain at rest, chest pain with exertion or shortness of breath Skin Skin: Positive for wounds, redness and skin pain; no lesions Neuro Neurology: No behavioral changes or confusion Psych Psychiatric: No behavioral changes, No confusion, No abnormal sleep pattern Endo Endocrine: No fatigue Exam Const General: cooperative, healthy appearing [facility] Head: normocephalic, atraumatic Ears: hearing grossly normal bilaterally Nose: external nose normal Face and sinus: face symmetric, normal facial exam Mouth: oral mucosae normal Throat: posterior oropharynx normal Resp Effort AND Inspection: normal respiratory effort Auscultation: Bilateral: Clear to Auscultation Cardio Palpation: normal PMI Rate: regular rate Rhythm: regular rhythm Skin Other: Numerous skin abrasions to bilateral lower extremities which do have surrounding erythema and slight warmth. There are also several small pustules with no drainage. Patient has no streaking or lymphadenopathy. Make you that her hot water and more anterior to Neuro General: alert, CN's II-XI intact bilaterally Extrem General: no calf tenderness, full ROM, normal capillary refill, no joint enlargement, normal gait Psych Appearance: grossly normal Mental Status: mental status grossly normal Assessment AND Plan Problems 1. Staph skin infection L08.9; B95.8 Status Acute 2. Infected abrasion of left lower extremity, initial encounter S80.812A; L08.9 Status Acute Bilateral legs Plan Bactrim as prescribed today. Encouraged to get plenty of rest, drink lots of clear liquids, and use Tylenol or Ibuprofen (unless contraindicated) for fever and comfort. Advised patient discontinue use of hydroperoxide and to only use soap and water to clean his legs. Advised of potential red flags and when appropriate report to the ED. Patient also educated on other symptomatic management techniques. To be seen in 7-10 days by PCP if no improvement; sooner if worsening of symptoms. Patient verbalized understanding of all the above. Medications New: Coding Level of Care Code Off vis,new,level 4 Diagnoses Staph skin infection L08.9; B95.8 Infected abrasion of left lower extremity, initial encounter S80.812A; L08.9 Encounter type: initial encounter Laterality: left 09/14/17 0924 <Electronically signed by Benji WARNER> Date Benji WARNER Cosigner Signature: Date (if applicable) CC: ALLERGIES ALLERGIES DATE TYPE / CODE NAME / CODE REACTION SEVERITY SOURCE 04/01/2018 Drug No Known Unknown [place] [facility] Allergy/416 Allergies/M96093 [facility] 090542(SNOM 0388(RXNORM) Repository ED CT) Drug NO KNOWN [facility] Class/06248 ALLERGIES Main [place] 1003(SNOMED Repository CT) ENCOUNTERS ENCOUNTERS ADMIT/DISCHARGE ACCOUNT ADMITTING ENCOUNTER LOCATION SOURCE NUMBER CLASS 04/01/2018/04/01/19 [id number] Emergency [place] [facility] ing:ED Repository 03/26/2018/03/26/19 [id number] Ambulatory [address] Repository 03/26/2018/03/26/19 [id number] Ambulatory [address] Repository 10/24/2017 [id number] Ambulatory [place] [facility] ing:LABSPEC Repository 09/14/2017/09/15/19 [id number] Ambulatory BMSBuilding:B [place] [address] [facility] Repository PAYERS PAYERS ENCOUNTER GUARANTOR PAYER SUBSCRIBER SOURCE 04/01/2018 SHUN BRAXTON Primary SHUN BRAXTON Hernandez [id number] Insurance:ANTHEMPolic SHINGLETONDOB: [facility] y [facility]: [id number] [address]Agp: [id number] Repository Date:[id number] ) [id number] [place] [address]OK: 04/01/2018 Secondary SHUN BRAXTON Chavez Insurance:BUCKEYE SHINGLETONDOB: [id number] Number: Repository [id number] Date:2334-72-90CM [address] [place] [address]RT: 04/01/2018 Tertiary NOT GIVENUNK [place] Insurance:SELF PAY [facility] Number: Effective Repository Date:2018-04-01 10/24/2017 SHUN BRAXTON Primary SHUN BRAXTON Hernandez [id number] E Insurance:ANTHEMPolic SHINGLETONDOB: [facility] y Number: [id number] [id number] Repository [address]ok: [phone]) Date:0524-23-93[address]X [phone] () [address] [place] [address]AE: 10/24/2017 Secondary NOT GIVENUNK [place] Insurance:SELF PAY [facility] Number: Effective Repository Date:2017-10-24 09/14/2017 SHUN BRAXTON Primary SHUN BRAXTON Chavez [id number] Insurance:ANTHEMPolic SHINGLETONDOB: [facility] y Number: [id number] [id number] Repository [address]Sif: [phone]) Date:3332-09-14[phone] () [id number], [place] [address]TI: 09/14/2017 Secondary NOT GIVENPAU Hernandez Insurance:SELF PAY [facility] Number: Effective Repository Date:2017-09-14
== END 2018-04-01 15:32 | disposition home or self-care (01) ==
LOC: ED 15:19
PROVIDERS: Emergency Provider Emergency Medicine
DX: F32.9 Major depressive disorder, single episode, unspecified (principal); Z79.899 Other long term (current) drug therapy
CPT/HCPCS: 99282

== ENCOUNTER 2018-12-17 10:19 | Emergency (ER) | payer OTHER, BC, MEDICAID, SELFPAY ==
[2018-12-17 10:20] VITALS: BP 162/87; PULSE 107; RESP 16; TEMP 37.2; O2SAT 99; BMI 42.5
--- NOTE | 2018-12-17 10:37 | ED.DCSUM_ITS ---
History of Present Illness Chief Complaint: Upper Extremity Injury Informant: Patient Onset: Today Mechanism/Context: Work Related - Pulling signed from wall patient felt a pop and tear insertion site bicep tendon right upper extremity lateral side Current Severity: Mild Maximum Severity: Moderate Worsened by: Movement of right elbow Relieved by: Remaining still Associated Symptoms: Negative for: Parasthesias, Weakness, Loss of function, Inability to ambulate, Loss of consciousness Narrative: Patient is a 33-year-old [id number] male who presents with injury to right elbow when he attempted to remove a sign from the wall. He felt a tear/pop. He localizes pain lateral anterior right elbow. He denies p aresthesia, anesthesia motor weakness. He denies loss of function. He is reluctant to move it because of pain. Tetanus Immunization: 5-10 years Prior similar symptoms: No Recent Illness/Hospitalization: No - Past Medical History (1) No significant past medical history Status: Acute Past Medical History - Allergies and Home Meds Allergies/Adverse Reactions: Allergies No Known Allergies Allergy (Verified 04/01/18 14:03) Primary Care Physician: Care Physician,No Primary [NON-STAFF] - Prior records reviewed: No Past Medical History: None Surgical History: no surgical history Lives: Spouse/ Significant Other Smoking Status: Never smoker Drugs: None Review of Systems General: Denies: Chills, Fever, Subjective, Sweats Musculoskeletal: Reports: Extremity Pain. Denies: Myalgias, Arthralgias, Neck pain, Back pain, Swelling Skin: Denies: Rash, Wounds Neurological: Denies: Weakness, Parasthesia, Numbness Hematologic: Denies: Easy bruising, Easy bleeding Physical Exam Vital Signs/Narrative: Vital Signs Temp Pulse Resp BP Pulse Ox 12/17/18 10:20 98.9 F 107 H 16 162/87 H 99 Inital Vital Signs reviewed: Yes General: Well nourished, Well developed, Obese Head: Normocephalic, Atraumatic Eyes: Perrl, EOMI. Negative for: Pale conjunctiva, Scleral icterus ENT: TM's clear, No hemotympanum or drainage, No trauma. Negative for: Hemotympanum, Otorrhea, Nasal trauma, Nasal septal hematoma Neck: Nontender, Full ROM Cardiovascular: Regular rate, Regular rhythm Respiratory: No distress Extremeties: There is pain palpation at insertion site of bicep tendon. Supination pronation causes him significant discomfort. Passive flexion extension does not cause him discomfort. Having him flex against resistance causes him discomfort. There is no obvious defect to suggest ruptured bicep tendon/muscle. Median, radial and ulnar function intact. Radial pulses palpable. There is no pain the patient over the olecranon process or the lateral or medial epicondyle. There is no pain the patient over the radial head. Skin: Normal color, No rash Neurological: Alert, Oriented x3, Cranial nerves II-XII grossly intact, Normal Strength, Normal Sensation Psychological: Normal affect - Glascow Coma Scale Eye Opening: Spontaneous Motor: Obeys Commands Verbal: Oriented Coma Scale Total: 15 Diagnostic/Tx/Re-eval Chest X-Ray - ED: Read by ED Physician 3 view x-ray of the elbow was obtained interpreted by me as negative. - Medical Decision Making Three-view x-ray of the elbow was obtained to assess for pull off fracture versus ligamentous strain. Since there is no pull off fracture or effusion we will treat for bicep tendon strain. ED Disposition - Plan for ED Patient: Disposition: Home or Assisted Living Diagnosis: Strain of biceps tendon Instructions: MUSCLE STRAIN, Extremity Prescriptions: Naproxen [Naprosyn] 500 mg PO BID #14 tab Transmission Status: Pending to [facility] Referrals: Care Physician,No Primary [NON-STAFF] - Corporate,Care [GROUP OF PHYSICIANS] - 2 Days Additional Instructions: Apply ice 20 to 30 minutes per application 6-8 times a day right elbow. Avoid flexing right elbow. Take anti-inflammatory as prescribed. Your prescription was electronically transmitted to [facility]
--- NOTE | 2018-12-17 11:20 | RAD_ITS ---
STUDY: X-RAY - RIGHT ELBOW REASON FOR EXAM: Male, 33 years old. PAIN S/P LIFTING INJURY, FELT POPPING IN RIGHT ELBOW TECHNIQUE: 3 view(s) of the elbow. COMPARISON: None. FINDINGS: Normal visualized humerus, radius and ulna. Normal radiocapitellar and ulnotrochlear articulations. The soft tissue structures are unremarkable. RAD/Elbow min 3 Views IMPRESSION: Normal x-ray examination of the elbow. Electronically Signed: Radha Gaston MD at 11:38 EDT , Service support ,
== END 2018-12-17 11:49 | disposition home or self-care (01) ==
PROVIDERS: Emergency Provider Emergency Medicine; Family Provider Family Medicine; PCP Family Medicine
DX: S46.211A Strain of muscle, fascia and tendon of other parts of biceps, right arm, initial encounter (principal); X50.9XXA Other and unspecified overexertion or strenuous movements or postures, initial encounter; Y93.9 Activity, unspecified; Y92.9 Unspecified place or not applicable; Y99.0 Civilian activity done for income or pay; Z79.899 Other long term (current) drug therapy
CPT/HCPCS: 73080; 99282